=== PATIENT | male | born 2000 | race Caucasian/White ===

== ENCOUNTER 2020-02-24 20:03 | Emergency (ER) | payer MEDICAID, OTHER ==
[~2020-02-24] VITALS: Ht 170.2 cm; Wt 100.0 kg
[2020-02-24] MEDS ORDERED: AZIT250T2 PO (21:14)
[2020-02-24] MEDS ORDERED: ALBU6.7H9 INH (21:14)
[2020-02-24 21:58] VITALS: BP 130/83
== END 2020-02-24 22:01 | disposition home or self-care (01) ==
LOC: ER 20:04
DX: J02.9 Acute pharyngitis, unspecified (principal); R05 Cough; R19.7 Diarrhea, unspecified; Z20.828 Contact with and (suspected) exposure to other viral communicable diseases; Z88.2 Allergy status to sulfonamides; Z79.2 Long term (current) use of antibiotics; Z79.899 Other long term (current) drug therapy
CPT/HCPCS: 36415; 71045; 87635; 99284